=== PATIENT | female | born 1975 | race Caucasian/White ===

== ENCOUNTER → 2023-01-22 | Outpatient (CLI) | payer BC ==
--- NOTE | 2023-01-23 06:07 | DIREP ---
PROCEDURE:XR SPINE CERVICAL 2 OR 3 VIEWS COMPARISON:None. INDICATIONS:CERVICAL SPINE PAIN TECHNIQUE:AP, lateral, and dens views of the cervical spine are provided. FINDINGS: ALIGNMENT:Normal. VERTEBRAE:Normal vertebral height. Mild anterior osteophyte formation largest at the C5-6 level. Mild facet arthrosis. DISK SPACES:Moderate loss of disc height at C5-6. CERVICAL RIBS:None. OTHER:Normal. CONCLUSION:Degenerative changes with moderate loss of disc height at C5-6. Dictated by: Cortney Thorpe M.D. on 01/23/2023 at 06:02 AM
--- NOTE | 2023-01-23 06:08 | DIREP ---
PROCEDURE:XRAY SPINE LUMBAR 2-3 VWS COMPARISON:None. INDICATIONS:LOWER BACK PAIN TECHNIQUE:AP, lateral, and coned down lateral views of the lumbar spine are provided. FINDINGS: ALIGNMENT:Minimal dextro convex curvature of the lumbar spine. VERTEBRAE:Normal vertebral body height. Minimal anterior and lateral osteophyte formation. DISK SPACES:Normal. SPONDYLOLISTHESIS:None. SACROILIAC JOINTS:Normal. OTHER:Intrauterine contraceptive device. CONCLUSION:Minimal degenerative changes without acute bony abnormality. Dictated by: Cortney Thorpe M.D. on 01/23/2023 at 06:06 AM
== END | disposition home or self-care (01) ==
LOC: RAD 15:01
PROVIDERS: ATTEND Chiropractor
DX: M47.812 Spondylosis without myelopathy or radiculopathy, cervical region (principal); M25.78 Osteophyte, vertebrae
CPT/HCPCS: 72040; 72100